=== PATIENT | female | born 1960 | race Caucasian/White ===

== ENCOUNTER 2017-05-03 16:07 | Emergency (ER) | payer MEDICARE ==
[~2017-05-03] VITALS: Ht 160 cm; Wt 56.0 kg
[~2017-05-03 16:07] MED LIST: AUGM875T PO; TYLETAB34 PO; ZOFR4TAB PO
[2017-05-03 16:10] VITALS: BP 133/63; PULSE 90; RESP 16; TEMP 98; O2SAT 97
--- NOTE | 2017-05-03 16:56 | PD ---
HPI Chief Complaint: Headache Time Seen by Provider: 16:30 Travel History International Travel<30 days: No Contact w/Intl Traveler<30days: No Traveled to known affect area: No History of Present Illness HPI 57yo F with PMH of MS presents to the ED with c/o headache for 1 month. Said she has pain on her bilateral frontal and maxillary sinuses, behind both eyes, occiput for 1 month. Said headache is constantly there. Pt last took tylenol yesterday. Pt was seen at [facility] today and sent to the ED for CT scan. Pt said she also saw eye doctor 9 days ago because she had some discharge from both eyes and was prescribe augmentin for presumed sinusitis. Pt is on day 9 of augmentin. She also had throat pain for a few days. Denies fever but said she normally doesnt get fever. Denies any trauma, focal weakness or numbness, chest pain, sob, n/v, abdominal pain. Pt also complained of lightheadedness today, said she has not slept well and is feeling generalized weakness. PFSH Past Medical History Hx Anticoagulant Therapy: No Autoimmune Disease: Yes (MS) Depression: Yes Cardiovascular Problems: No Chemotherapy: No COPD: Yes Cerebrovascular Accident: No Diabetes: No Diminished Hearing: No Genitourinary: No Musculoskeletal: Yes (OSTEOPOROSIS) Neurologic: Yes (MS) Psychiatric: Yes Reproductive: No Respiratory: Yes (copd) Immunizations Current: No Menopausal: Yes : 1 Para: 1 Ectopic : Yes Tubal Ligation: Yes Past Surgical History Section: Yes Gynecologic Surgery: Yes ( 1982, TUBAL LIGATION 1986) Hysterectomy: No Insulin Pump: No Other Surgery: No Social History Alcohol Use: No Tobacco Use: Yes (3 CIGARETTES A DAY, over thirty years) Substance Use: No Allergies-Medications (Allergen,Severity, Reaction): Coded Allergies: Sulfa (Sulfonamide Antibiotics) (Verified Allergy, Unknown, 05/03/17) tetanus toxoid, adsorbed (Unverified Adverse Reaction, Intermediate, FEVER , 11/19/16) Reported Meds & Prescriptions Reported Meds & Active Scripts Active No Active Prescriptions or Reported Medications Review of Systems Except as stated in HPI: all other systems reviewed are Neg Physical Exam Narrative GENERAL: 57yo F in mild distress. SKIN: Focused skin assessment warm/dry. HEAD: Atraumatic. Normocephalic. EYES: Pupils equal and round at 3mm bilaterally. EOMI. ENT: No nasal bleeding or discharge. Mucous membranes pink and moist. NECK: Trachea midline. No JVD. No nuchal rigidity. CARDIOVASCULAR: Regular rate and rhythm. No murmur appreciated. RESPIRATORY: No accessory muscle use. Clear to auscultation. Breath sounds equal bilaterally. GASTROINTESTINAL: Abdomen soft, non-tender, nondistended. MUSCULOSKELETAL: No obvious deformities. No clubbing. No cyanosis. No edema. NEUROLOGICAL: Awake and alert. No obvious cranial nerve deficits. Motor grossly within normal limits. Sensation intact. Normal speech. Data Data Last Documented VS Vital Signs Date Time Temp Pulse Resp B/P (MAP) Pulse Ox O2 Delivery O2 Flow Rate FiO2 05/03/17 18:00 73 16 115/62 (79) 97 Room Air 05/03/17 16:[address] Brain W/O Iv Contrast(Rout) (05/03/17 ) Electrocardiogram (05/03/17 ) Complete Blood Count With Diff (05/03/17 16:44) Basic Metabolic Panel (Bmp) (05/03/17 16:44) Influenzae A/B Antigen (05/03/17 16:44) Ketorolac Inj (Toradol Inj) (05/03/17 18:00) Ondansetron Inj (Zofran Inj) (05/03/17 18:00) Sodium Chlor 0.9% 1000 Ml Inj (Ns 1000 M (05/03/17 18:00) Ed Discharge Order (05/03/17 18:28) Labs Laboratory Tests Test 05/03/17 16:55 White Blood Count 7.7 TH/MM3 Red Blood Count 4.42 MIL/MM3 Hemoglobin 13.4 GM/DL Hematocrit 39.2 % Mean Corpuscular Volume 88.6 FL Mean Corpuscular Hemoglobin 30.3 PG Mean Corpuscular Hemoglobin Concent 34.2 % Red Cell Distribution Width 12.8 % Platelet Count 256 TH/MM3 Mean Platelet Volume 8.0 FL Neutrophils (%) (Auto) 62.3 % Lymphocytes (%) (Auto) 28.4 % Monocytes (%) (Auto) 6.4 % Eosinophils (%) (Auto) 2.0 % Basophils (%) (Auto) 0.9 % Neutrophils # (Auto) 4.7 TH/MM3 Lymphocytes # (Auto) 2.2 TH/MM3 Monocytes # (Auto) 0.5 TH/MM3 Eosinophils # (Auto) 0.2 TH/MM3 Basophils # (Auto) 0.1 TH/MM3 CBC Comment DIFF FINAL Differential Comment Blood Urea Nitrogen 13 MG/DL Creatinine 0.51 MG/DL Random Glucose 109 MG/DL Calcium Level 8.8 MG/DL Sodium Level 138 MEQ/L Potassium Level 4.1 MEQ/L Chloride Level 104 MEQ/L Carbon Dioxide Level 27.4 MEQ/L Anion Gap 7 MEQ/L Estimat Glomerular Filtration Rate 123 ML/MIN [facility] Medical Decision Making Medical Screen Exam Complete: Yes Emergency Medical Condition: Yes Interpretation(s) EKG: NSR 80bpm. Normal axis. No ST segment elevation or depression. Differential Diagnosis Sinus headache vs. tension headache vs. viral syndrome Narrative Course 57yo F with headache for 1 month. Pt is well appearing. She is insistent on CT scan because urgent care sent her here for CT scan. CT brain negative for acute intracranial abnormality. Paranasal sinus disease. Influenza negative. Labs reviewed, no leukocytosis. H/H normal. BMP unremarkable. Pt was just given toradol and zofran. 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 Since pt just got her medication, it is difficult to reevaluate. She is nontoxic appearing so return precautions given. Pt has neurologist Dr. Haji and can follow up with him as outpatient. Diagnosis Primary Impression: Headache Qualified Codes: R51 - Headache Patient Instructions: General Instructions Departure Forms: Tests/Procedures Additional Instructions: Please follow up with your neurologist in 2-3 days. Return to the ED if symptoms worsen. Med/Other Pt SpecificInfo: Prescription(s) given Scripts Acetaminophen (Tylenol) 325 Mg Tab 650 MG PO Q6H Y for PAIN SCALE 1 TO 4, #20 TAB 0 Refills Prov: Dottie Phillips 05/03/17 Disposition: 01 DISCHARGE HOME Condition: Stable PhillipsDottie DO May 03, 2017 16:56
--- NOTE | 2017-05-03 17:08 | RADRPT ---
EXAM DATE/TIME: 05/03/2017 16:59 [facility] COMPARISON: CT BRAIN W/O CONTRAST, March 04, 2016, 17:24. INDICATIONS : Headache, dizzy for a month. RADIATION DOSE: 59.02 CTDIvol (mGy) MEDICAL HISTORY : Chronic obstructive pulmonary disease. Osteoarthritis. Multiple sclerosis. SURGICAL HISTORY : Tubal ligation. ENCOUNTER: Initial ACUITY: 1 month PAIN SCALE: 5/10 LOCATION: cranial TECHNIQUE: Multiple contiguous axial images were obtained of the head. Using automated exposure control and adj ustment of the mA and/or kV according to patient size, radiation dose was kept as low as reasonably a chievable to obtain optimal diagnostic quality images. DICOM format image data is available electro nically for review and comparison. FINDINGS: CEREBRUM: The ventricles are normal for age. No evidence of midline shift, mass lesion, hemorrhage or acute in farction. No extra-axial fluid collections are seen. 1 cm developmental cyst versus an old lacunar i nfarct in the right basal ganglia unchanged. POSTERIOR FOSSA: The cerebellum and brainstem are intact. The 4th ventricle is midline. The cerebellopontine angle i s unremarkable. EXTRACRANIAL: Fluid level in the sphenoid and right maxillary sinus. Previously seen mucoperiosteal thickening has improved. SKULL: The calvaria is intact. No evidence of skull fracture. CONCLUSION: No acute intracranial abnormality. Paranasal sinus disease. Shahriar Alarcon MD on May 03, 2017 at 17:04 Board Certified Radiologist. This report was verified electronically.
[2017-05-03 17:10] LABS: AUTOMATED NEUTROPHIL # 4.7 TH/MM3 (1.8-7.7); BASOPHIL # 0.1 TH/MM3 (0-0.2); BASOPHIL % 0.9 % (0.0-2.0); EOSINOPHIL # 0.2 TH/MM3 (0-0.4); HEMATOCRIT 39.2 % (35.0-46.0); HEMOGLOBIN 13.4 GM/DL (11.6-15.3); LYMPH % 28.4 % (9.0-44.0); LYMPHOCYTE # 2.2 TH/MM3 (1.0-4.8); MEAN CELL VOLUME 88.6 FL (80.0-100.0); MEAN CORPUSCULAR HEMOGLOBIN 30.3 PG (27.0-34.0); MEAN CORPUSCULAR HGB CONC 34.2 % (32.0-36.0); MONO % 6.4 % (0.0-8.0); MONOCYTE # 0.5 TH/MM3 (0-0.9); NEUT % 62.3 % (16.0-70.0); PLATELET COUNT 256 TH/MM3 (150-450); RED BLOOD COUNT 4.42 MIL/MM3 (4.00-5.30); RED CELL DISTRIBUTION WIDTH 12.8 % (11.6-17.2); WHITE BLOOD COUNT 7.7 TH/MM3 (4.0-11.0)
[2017-05-03 17:22] LABS: CALCIUM 8.8 MG/DL (8.5-10.1)
[2017-05-03 17:23] LABS: BICARBONATE 27.4 MEQ/L (21.0-32.0)
[2017-05-03 17:26] LABS: CREATININE 0.51 MG/DL (0.50-1.00)
[2017-05-03 18:00] VITALS: BP 115/62; PULSE 73; RESP 16; O2SAT 97
[2017-05-03] MEDS ORDERED: SODIUM CHLOR 0.9% 1000 ML INJ 1,000 ML IV ONE (18:00)
[2017-05-03] MEDS ORDERED: ONDANSETRON HCL 4 MG/2 ML VIAL IV PUSH ONE (18:00)
[2017-05-03] MEDS ORDERED: KETOROLAC TROMETHAMINE 30 MG/ML (IVP) VIAL IV PUSH ONE (18:00)
[2017-05-03] MEDS ORDERED: TYLE325T PO (18:34)
--- NOTE | 2017-05-04 12:22 | EKG ---
Date Performed: 05/03/2017 Time Performed: 17:19:15 PTAGE: 57 years EKG: Sinus rhythm WITH SINUS ARRHYTHMIA Nonspecific ST-T changes have improved NORMAL ECG PREVIOUS TRACING : 06/24/2007 18.24 DOCTOR: aDmion Mtz Interpretating Date/Time 05/04/2017 12:20:17
== END 2017-05-03 18:41 | disposition home or self-care (01) ==
LOC: PHED 16:07
DX: R51 Headache (principal); G35 Multiple sclerosis; F32.9 Major depressive disorder, single episode, unspecified; J44.9 Chronic obstructive pulmonary disease, unspecified; M81.0 Age-related osteoporosis without current pathological fracture; Z72.0 Tobacco use
CPT/HCPCS: 70450; 80048; 85025; 87804; 93005; 96374; 96375; 99285; J1885; J2405